=== PATIENT | female | born 1945 | race Caucasian/White ===

== ENCOUNTER 2016-04-01 16:22 | Emergency (ER) | payer OTHER, MEDICARE ==
[2016-04-01 16:58] VITALS: BP 119/58; PULSE 78; RESP 16; TEMP 98.2; O2SAT 95
--- NOTE | 2016-04-01 18:09 | UCPHY ---
H & P Time Seen by Provider: 04/01/16 17:14 Patient Type: New HPI/ROS: This patient complains of sinus headache. She complains of this primarily at the left frontal region. She explains that she has had nasal congestion and sinus pressure and pain for 3 weeks or so now. While still in [place] where she lives she started on doxycycline but developed a mild rash and stop the antibiotic after 3-5 days. She then saw another physician and started is Zithromax pack after arrival in [place] 5 days ago. She just finished that yesterday and still has ongoing symptoms 6/10 pressure pain. She has partial improvement from ibuprofen and notes no other exacerbating or alleviating factors. She explains that she had minimal pressure before this morning when the ache started that brought her in for evaluation. ROS: No fevers or chills. No other significant constitutional symptoms. HEENT : She has a mild sore throat for few days. She still tolerating good p.o. intake despite this. No other HEENT complaints. Neuro: No focal numbness tingling weakness. No visual changes. No confusion. No photophobia. Pulmonary : No cough cardiovascular: No complaints. GI: No vomiting. 10 point ROS is otherwise negative. Past Medical/Surgical History: Hypertension Hypothyroidism Social History: Patient's daughter recently had strep throat. Smoking Status: Never smoked Physical Exam: Physical Exam Vital signs are normal. General: No acute distress HEENT: Nose: Swollen nasal mucosa bilaterally with yellow to greenish discharge bilaterally. Ears: External canals and TMs clear bilaterally oropharynx: No significant erythema or exudates. No dysphonia. Eyes: Pupils equal and react to light. Extraocular motions are intact. Optic fundi are normal bilaterally. Neck: Supple with no meningismus. Lungs: Clear to auscultation bilaterally. No respiratory distress. Cardiac: Regular rate and rhythm with no murmur gallop or rub. extremity. Skin: No rash or pallor. Neuro: Alert and oriented x3 with no sensorimotor deficits. GCS 15. No pronator drift. Normal cerebellar exam is judged by symmetric rapid hand movements bilaterally. Initial differential diagnosis: Ongoing sinusitis, tension headache, then viral pharyngitis, strep pharyngitis Constitutional: Initial Vital Signs Temperature (C) 36.8 C 04/01/16 16:51 Heart Rate 78 04/01/16 16:51 Respiratory Rate 16 04/01/16 16:51 Blood Pressure 119/58 L 04/01/16 16:51 O2 Sat (%) 95 04/01/16 16:51 O2 Delivery Mode Room Air Allergies/Adverse Reactions: amoxicillin Allergy (Intermediate, Verified 04/01/16 16:48) cefdinir Allergy (Intermediate, Verified 04/01/16 16:48) Hives clindamycin Allergy (Intermediate, Verified 04/01/16 16:48) Hives Home Medications: Medication Instructions Recorded Clarinex 04/01/16 Cytomel 04/01/16 Hydrochlorothiazide 04/01/16 Thyroid 04/01/16 Ventolin Hfa Inhaler 04/01/16 MDM/Departure - MDM Diagnostics: Rapid strep is negative. ED Course/Re-evaluation: I counseled the patient regarding sinusitis. She has many antibiotic allergies and she still in the therapeutic window of the Zithromax. I counseled regarding this encouraged her to restart her Flonase which she had stopped, continue ibuprofen and Tylenol and humidifier as well as guaifenesin. She appears nontoxic and not think she has a sinus infection clinically. No concerning findings on exam. We ruled out strep pharyngitis with a negative rapid strep. - Depart Clinical Impression: Sinusitis Qualifiers: Qualifier Code: (J01.10) Acute frontal sinusitis, unspecified Instructions: Sinusitis (ED) Additional Instructions: Diagnosis: Frontal sinusitis 2. Sinus headache Rapid strep is negative Plan: Continue Flonase steroid nasal spray Humidifier Mucinex Your Zithromax is still having effect for another 5 days. Dpactihgb-[id number] mg every 6 hours Tylenol in addition as needed. Return for any significant worsening despite the treatment plan Referrals: OUT OF STATE,. [Primary Care Provider] - As per Instructions - PQRS PQRS Measurement: 134: Depression screening and followup, PRIME MD-PHQ2 (12 years and older) Over the last 2 weeks, how often have you been bothered by any of the following problems? 1. Feeling down, depressed, or hopeless? 2. Little interest or pleasure in doing things? Patient answered no to both 1 and 2 130: Documentation of medications. Reviewed all patient medications, doses, route and frequency. 226: Do you smoke? [No.] 47: 65 and older: Advanced care planning. Patient designates surrogate decision maker as spouse. 51: 18 years old and older with diagnosis of COPD, spirometry performance. NA 52: 18 years old and older with COPD and symptoms of COPD or FEV1<60% predicted prescribed a B Agonist. NA
== END 2016-04-01 18:00 | disposition home or self-care (01) ==
LOC: CED 16:22
DX: J01.10 Acute frontal sinusitis, unspecified (principal); I10 Essential (primary) hypertension; E03.9 Hypothyroidism, unspecified
CPT/HCPCS: 87880-PO; 99203-PO; G0463-PO

== ENCOUNTER 2016-04-06 14:25 | Emergency (ER) | payer OTHER, MEDICARE ==
[2016-04-06 14:40] VITALS: BP 142/80; PULSE 92; RESP 18; TEMP 97.9; O2SAT 96
--- NOTE | 2016-04-06 14:59 | UCPHY ---
H & P Patient Type: Established Chief Complaint Nursing Narrative: c/o sore throat and runny nose x 2 weeks, seen for same here on Time Seen by Provider: 04/06/16 14:42 HPI/ROS: Chief complaint, nasal congestion, sore throat, runny nose, sinus pain HPI: 70-year-old female was seen here 5 days ago for sinusitis type symptoms. She has had symptoms for several weeks now initially was started on doxycycline but stopped after 3 days because she developed a rash. She was seen here last week and was sent home with a prescription for azithromycin. She has completed that is still not had any resolution in her symptoms. She states she has had sinusitis in the past and azithromycin worse for her. Problems that she is allergic to penicillins and to clindamycin. She has taken Levaquin in the past however she did have some aching in her joints after she took that. Denies any fevers or chills. Has had mild headache. It has no ear pain or hearing changes. Has a mild occasional dry cough. No shortness of breath or chest pain. No abdominal pain. No skin rash. ROS: 10 point Review of Systems is negative except as noted in the HPI. Physical exam: Gen: Awake, Alert, No Distress HEENT: No sinus tenderness to percussion Nose: Clear rhinorrhea Eyes: PERRLA, EOMI Mouth: Moist mucosa very mild pharyngeal erythema consistent with postnasal drip Neck: Supple, no JVD Chest: nontender, lungs clear to auscultation Heart: S1, S2 normal, no murmur Back: no CVA tenderness, no midline tenderness Ext: no edema, non-tender Skin: no rash Neuro: CN II-XII intact, Sensation grossly intact, Strength 5/5 in bilateral upper and lower extremities - Medical/Surgical History Hx Asthma: Yes Hx Chronic Respiratory Disease: No Hx Diabetes: No Hx Cardiac Disease: No Hx Renal Disease: No Hx Cirrhosis: No Hx Alcoholism: No Hx HIV/AIDS: No Hx Splenectomy or Spleen Trauma: No Other PMH: Med hx-thyorid,water retention. Surg-ovaries/partial hyst - Family History Significant Family History: No pertinent family hx - Social History Smoking Status: Never smoked Constitutional: Initial Vital Signs Temperature (C) 36.6 C 04/06/16 14:38 Heart Rate 92 04/06/16 14:38 Respiratory Rate 18 04/06/16 14:38 Blood Pressure 142/80 H 04/06/16 14:38 O2 Sat (%) 96 04/06/16 14:38 O2 Delivery Mode Room Air Allergies/Adverse Reactions: amoxicillin Allergy (Intermediate, Verified 04/01/16 16:48) cefdinir Allergy (Intermediate, Verified 04/01/16 16:48) Hives clindamycin Allergy (Intermediate, Verified 04/01/16 16:48) Hives Home Medications: Medication Instructions Recorded Clarinex 04/01/16 Cytomel 04/01/16 Hydrochlorothiazide 04/01/16 Thyroid 04/01/16 Ventolin Hfa Inhaler 04/01/16 levOFLOXACIN [Levaquin] 500 mg PO DAILY #7 tablet 04/06/16 Medical Decision Making ED Course/Re-evaluation: 70-year-old woman viral upper respiratory symptoms. She is here requesting another antibiotic as she is not better. I have explained to her that with sinusitis that is likely viral in that symptoms will persist for several weeks until the completely resolved. She states that she is frustrated that she is not have any relief from the azithromycin she had from a week ago. I explained to her that this is probably viral process and the able take some time for symptoms resolved. She is still insisting that she needs an antibiotic to treat this. I have explained to her that given her multiple allergies and no improvement of prior antibiotics that Levaquin is probably the only option at this point. She has had some joint pain associated with this and I have explained to her that tendon rupture is a possible complication with a fluoroquinolone. She understands this and is willing to take this risk despite my feeling that antibiotics are not indicated in this case as likely a viral etiology. She states she still wants to take the antibiotics and so I will give her prescription for Levaquin and I will give her outpatient follow-up for a primary care physician. Departure - Departure Disposition: Home, Routine, Self-Care Clinical Impression: Sinusitis Condition: Good Instructions: Sinusitis (ED) Referrals: OUT OF STATE,. [Primary Care Provider] - As per Instructions [facility] [Outside] - As per Instructions Prescriptions: levOFLOXACIN [Levaquin] 500 mg PO DAILY #7 tablet - PQRS PQRS Measurement: 134: Depression screening and followup, PRIME MD-PHQ2 (12 years and older) Over the last 2 weeks, how often have you been bothered by any of the following problems? 1. Feeling down, depressed, or hopeless? 2. Little interest or pleasure in doing things? Patient answered no to both 1 and 2 130: Documentation of medications. Reviewed all patient medications, doses, route and frequency. 226: Do you smoke? No. 47: 65 and older: Advanced care planning. Patient designates surrogate decision maker as child. Patient has advanced directive. 51: 18 years old and older with diagnosis of COPD, spirometry performance. Patient has no history of COPD 52: 18 years old and older with COPD and symptoms of COPD or FEV1<60% predicted prescribed a B Agonist. Spirometry not performed; equipment not available.
== END 2016-04-06 15:06 | disposition home or self-care (01) ==
LOC: CED 14:25
DX: J01.90 Acute sinusitis, unspecified (principal)
CPT/HCPCS: G0463-PO